=== PATIENT | female | born 1950 ===

== ENCOUNTER 2020-11-21 08:10 | Outpatient (CLI) | payer OTHER | END 2020-11-21 08:22 | disposition home or self-care (01) | LOC: MRI 08:10 | PROVIDERS: ATTEND General Practice | DX: K21.00 Gastro-esophageal reflux disease with esophagitis, without bleeding (principal); K29.80 Duodenitis without bleeding; K44.9 Diaphragmatic hernia without obstruction or gangrene | CPT/HCPCS: 72195; 74181 ==